=== PATIENT | male | born 1970 | race Caucasian/White ===

== ENCOUNTER 2020-05-07 12:28 | Emergency (ER) | payer OTHER ==
[~2020-05-07] VITALS: Ht 182.9 cm; Wt 104.3 kg
[2020-05-07] MEDS ORDERED: AMLODIPINE-OLM1 EAC3 (13:22)
[2020-05-07] MEDS ORDERED: ZESTRIL40 M1 (13:22)
[2020-05-07] MEDS ORDERED: METFORMIN HCL1000 M2 (13:23)
[2020-05-07] MEDS ORDERED: XARELTO20 M1 (13:23)
[2020-05-07] MEDS ORDERED: BUPROPION XL150 MG (13:24)
[2020-05-07] MEDS ORDERED: TRAZODONE HCL150 MG (13:25)
[2020-05-07] MEDS ORDERED: PERCOCET 5-3251 EACH PO (16:17)
[2020-05-07] MEDS ORDERED: CELEBREX200MG PO (16:17)
[2020-05-07] MEDS ORDERED: FORTAMET1000 MG PO (16:32)
== END 2020-05-07 16:35 | disposition home or self-care (01) ==
LOC: ER 12:28
DX: S83.8X2A Sprain of other specified parts of left knee, initial encounter (principal); X50.3XXA Overexertion from repetitive movements, initial encounter; Y93.89 Activity, other specified; Y92.89 Other specified places as the place of occurrence of the external cause; Y99.8 Other external cause status